=== PATIENT | female | born 1975 | race Caucasian/White ===

== ENCOUNTER 2023-12-24 11:37 | Emergency (ER) | payer OTHER, SELFPAY ==
[2023-12-24 11:39] VITALS: BP 142/83; PULSE 95; RESP 18; TEMP 36.7; O2SAT 99
[2023-12-24 11:45] VITALS: RESP 19; O2SAT 98
[2023-12-24 12:20] LABS: Strep Group A RT-PCR NOT DETECTED (Negative)
--- NOTE | 2023-12-24 13:19 | ED.GENADULT ---
HPI - General Adult General Chief complaint: Unspecified Stated complaint: cough, h/a, foot pain Time Seen by Provider: 12/24/23 13:04 History of Present Illness HPI narrative: Patient is a 48-year-old female who presents to the emergency department to this afternoon complaining of a sore throat that started yesterday. Patient admits to feeling feverish but has not checked her temperature. 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 She also admits that she spends a lot of time on her feet. She is complaining of some pain to a spot to the sole of her right foot otherwise denies any additional symptoms or concerns. Denies any worse headache of her life sensation, denies any nausea or vomiting, any urinary symptoms and any chest pain shortness of breath. No additional symptoms or concerns at this time. Related Data Allergies Allergy/AdvReac Type Severity Reaction Status Date / Time Penicillins Allergy Unknown Unknown Verified 12/24/23 11:38 Review of Systems Review of Systems: All systems are reviewed and are negative unless stated otherwise in the HPI. Exam Narrative: General: Alert, awake, afebrile, in no acute distress. HEENT: PERRL, no rhinorrhea, no post nasal drip, oropharynx erythema with mild exudates noted overlying the right tonsil. Cardiovascular: Regular rate and rhythm, no murmurs, rubs or gallops, no peripheral edema. Respiratory: Clear to auscultation bilaterally, no tachypnea, no wheezing, no rhonchi, no rubs, no respiratory distress. Abdomen: Soft, nontender, nondistended, no rebound, no guarding, no peritoneal signs. Musculoskeletal: No joint swelling or deformity, normal muscle tone. Skin: Callus formation to the sole of the right foot at the base of 5th toe, no overlying erythema or evidence of infection. Neurological: Alert and oriented to person, place, and time. Follows all commands. No focal deficits, speech is clear and fluent. Course Vital Signs Vital signs: Vital Signs Temperature 98.1 F 12/24/23 11:39 Pulse Rate 95 12/24/23 11:39 Respiratory Rate 18 12/24/23 11:39 Blood Pressure 142/83 H 12/24/23 11:39 Pulse Oximetry 99 12/24/23 11:39 Oxygen Delivery Room Air 12/24/23 11:39 Temperature 98.1 F 12/24/23 11:39 Pulse Rate 77 12/24/23 13:29 Respiratory Rate 17 12/24/23 13:29 Blood Pressure 126/69 12/24/23 13:29 Pulse Oximetry 99 12/24/23 13:29 Oxygen Delivery Room Air 12/24/23 11:39 Medical Decision Making MDM Narrative Medical decision making narrative: The patient was evaluated by myself in the emergency department. History is obtained from patient who is an independent historian and physical exam was performed. External medical records were reviewed at this time. Viral swabs were obtained and noted to be negative for COVID/influenza/RSV. Differential diagnosis considerations include acute viral syndrome, viral pharyngitis and strep throat. Comorbidities impacting this visit include none. I have evaluated and discussed social determinants of health with the patient that could potentially impact subsequent diagnosis and treatment plans. On repeat assessment of the patient, reevaluation revealed that the patient is doing well and is in no acute distress. Patient symptoms have remained stable since she arrived to our emergency department. Patient was informed that the callus in her right foot is from prolonged standing and was instructed to purchase shoes with softer and soles to add more cushion and to try and spent some time offer feet and that she will be provided with a work note to give her a few days off. Repeat vital signs were all reviewed and noted to be stable. Differential diagnosis and treatment plan were discussed with the patient at bedside. Patient agrees with discussion and after shared medical decision making agrees with discharge. All questions were answered to the patient's satisfaction.
[2023-12-24 13:29] VITALS: BP 126/69; PULSE 77; RESP 17; O2SAT 99
[2023-12-24 14:02] LABS: Influenza A QL RT-PCR Negative (Negative); Influenza B QL RT-PCR Negative (Negative); RSV RNA, RT-PCR Negative (Negative); SARS-CoV-2 RNA PCR Negative (Negative)
[2023-12-24 14:14] VITALS: BP 119/74; PULSE 66; RESP 16; TEMP 37.1; O2SAT 99
== END 2023-12-24 14:15 | disposition home or self-care (01) ==
PROVIDERS: Emergency Medicine; Emergency Provider Emergency Medicine
DX: J02.9 Acute pharyngitis, unspecified (principal); Z20.822 Contact with and (suspected) exposure to COVID-19
CPT/HCPCS: 87637; 87651; 99283

== ENCOUNTER 2024-03-02 16:28 | Emergency (ER) | payer SELFPAY ==
[2024-03-02 16:44] VITALS: BP 136/77; PULSE 83; RESP 16; TEMP 36.6; O2SAT 100
[2024-03-02 17:29] LABS: Influenza A QL RT-PCR Negative (Negative); Influenza B QL RT-PCR Negative (Negative); RSV RNA, RT-PCR Negative (Negative); SARS-CoV-2 RNA PCR Positive (Negative)
--- NOTE | 2024-03-02 17:31 | ED.URI ---
HPI - URI/Sore Throat General Chief Complaint: Upper Respiratory Infection Stated Complaint: diarrhea, ST, covid positive Time Seen by Provider: 03/02/24 17:31 Focused HPI: This is a 49 year old female that presents to the ER for cold symptoms present over the last 3 days. Reports fever, chills, rhinorrhea, headache, nausea, sore throat, cough. She is not COVID vaccinated. Reports she had a home positive test today. Needs a documented test for work. Denies shortness of breath. GENERAL: Well-appearing, well-nourished, and in no acute distress. HEAD: Normocephalic, atraumatic. CHEST: Clear to auscultation. ?No respiratory distress. HEART: Regular rate and rhythm.? NEURO: ?Alert and oriented x3. Patient screened in triage and initial orders placed.? ?Additional care and disposition to be based upon?diagnostic testing and treatment. Related Data Allergies Allergy/AdvReac Type Severity Reaction Status Date / Time Penicillins Allergy Unknown Unknown Verified 12/24/23 11:38 Review of Systems Review of Systems: CONSTITUTIONAL: Reports fever ENT: Reports rhinorrhea, congestion, sore throat RESPIRATORY: Reports cough. Denies dyspnea. All systems reviewed & are unremarkable except as noted in HPI and below PMFSH Past Medical History Medical History (Updated 03/02/24 @ 17:37 by Fatoumata Cheung PA-C) No active medical problems Social History Social History (Updated 03/02/24 @ 17:32 by Fatoumata Cheung PA-C) Smoking status: Current every day smoker Exam Narrative: GENERAL: Well-appearing, well-nourished, and in no acute distress. HEAD: Normocephalic, atraumatic. EYES: EOMI. ENT: Nares clear, no rhinorrhea or epistaxis. Mucous membranes moist. Oropharynx without tonsillar hypertrophy exudate or other lesions. Bilateral TMs pearly camacho non-bulging NECK: Supple. No adenopathy or masses. CHEST: Clear to auscultation. No respiratory distress. No wheezes rales or rhonchi HEART: Regular rate and rhythm. No murmur heard. Normal peripheral pulses. EXTREMITIES: Normal range of motion. No edema. SKIN: Warm, dry, no rash. NEURO: No focal deficits. Alert and oriented x3. PSYCH: Normal mood and affect Course Course Emergency Course: Updated on her results and agrees with plan of care Vital Signs Vital signs: Vital Signs Temperature 97.8 F 03/02/24 16:44 Pulse Rate 83 03/02/24 16:44 Respiratory Rate 16 03/02/24 16:44 Blood Pressure 136/77 03/02/24 16:44 Pulse Oximetry 100 03/02/24 16:44 Oxygen Delivery Room Air 03/02/24 16:44 Temperature 97.8 F 03/02/24 16:44 Pulse Rate 83 03/02/24 16:44 Respiratory Rate 16 03/02/24 16:44 Blood Pressure 136/77 03/02/24 16:44 Pulse Oximetry 100 03/02/24 16:44 Oxygen Delivery Room Air 03/02/24 18:06 MDM - URI/Sore Throat MDM Narrative Medical decision making narrative: Patient presents to the ER for a COVID test. Reporting a positive home test, but needed a documented test for work. She was positive here. She is afebrile and nontoxic appearing. Lungs are clear on exam. Instructed on further care of viral infection. Will be given a work note. Differential Diagnosis Differential diagnosis: Likely upper respiratory infection, sinusitis, viral infection, bronchitis, influenza and other (COVID) Lab Data Attestation: I reviewed the patient's lab results. Labs: Lab Results 03/02/24 Range/Units 16:49 Influenza A (RT-PCR) Negative (Negative) Influenza B (RT-PCR) Negative (Negative) RSV (RT-PCR) Negative (Negative) SARS-CoV-2 RNA (RT-PCR) Positive A (Negative) Critical Care Time Critical Care Time Critical Care Time: No Discharge Plan Discharge Clinical Impression: COVID-19 Patient Disposition: Home, Self-Care Condition: Stable Instructions: COVID-19 (Coronavirus Disease 2019) (ED), How to Recover from COVID-19 at Home (ED) Additional Instructions: Return to the ER for worsening symptoms o
== END 2024-03-02 18:06 | disposition home or self-care (01) ==
LOC: ANHED 17:54
PROVIDERS: Emergency Medicine; Emergency Provider Physician Assistant
DX: U07.1 COVID-19 (principal)
CPT/HCPCS: 87637; 99283